=== PATIENT | female | born 1960 | race Caucasian/White ===

== ENCOUNTER → 2018-04-18 11:02 | Outpatient (REF) | payer OTHER, SELFPAY ==
--- NOTE | 2018-04-18 08:50 | SKI_PTH ---
PATIENT: Aylin Martinez LOC: [facility] U#:[id number] AGE/SX: 65/F ROOM: RE04/18/[address]: Ernei Potter MD : 1960 BED: DIS: SPEC #: [id number] RECD: 04/18/18 12:55 STATUS: JUSTIN HUBER #: [id number] YOSEF: 04/18/18 08:[address]: Ernie Potter DEPT: Surgical Specimen RECD BY: Carmina Herrmann ENTERED: 04/18/18 12:56 SP TYPE: CALLI BONNER DR: Marisol Arevalo MD, DC Tissues: 1 - SKIN BIOPSY(SHAVE/PUNCH) Procedures: SKIN LEVEL 4 Comments: [id number] (CREDITED - NO SPECIMEN RECEIVED IN CONTAINER)
== END ==
LOC: LBN 11:02
PROVIDERS: PCP Family Medicine; Visit Provider Family Medicine
DX: L90.8 Other atrophic disorders of skin (principal)
CPT/HCPCS: 88305

== ENCOUNTER 2018-10-13 10:43 | Outpatient (CLI) | payer OTHER, SELFPAY ==
[2018-10-13 12:57] LABS: Vitamin D 25 Total 70.2 ng/ml (30-100)
[2018-10-13 13:02] LABS: Cholesterol 267 mg/dL (50-200); HDL Cholesterol 73 mg/dL (40-60); LDL CHOLESTEROL 164 mg/dL (<100); Triglyceride 102 mg/dL (30-150); Vitamin B12 611 pg/mL (193-986)
== END 2018-10-13 11:03 ==
PROVIDERS: PCP Family Medicine; Visit Provider Family Medicine
DX: Z00.00 Encounter for general adult medical examination without abnormal findings (principal); E03.9 Hypothyroidism, unspecified; E55.9 Vitamin D deficiency, unspecified
CPT/HCPCS: 36415; 80061; 82306; 83721; 82607; 84443

== ENCOUNTER 2018-10-20 00:36 | Outpatient (CLI) | payer OTHER, SELFPAY ==
--- NOTE | 2018-10-20 11:30 | DI.MAMMO_ITS ---
SYMPTOMS/DIAGNOSIS: SCREENING, Z12.31 MAMMOGRAM: Mammograms were interpreted according to the usual protocol including computer analysis with CAD system, tomosynthesis and C view imaging. Comparison is made with exams from 2014 through 2017. The breasts are composed of scattered fibroglandular densities, breast density Category B. No suspicious masses or suspicious microcalcifications are seen. There has been no significant change. IMPRESSION: Category I B, negative mammogram. Yearly screening mammography is recommended. [facility] ASSESSMENT OF FINDINGS: Negative. Category 1. Patient will receive a letter notifying them of these results. BI-RADS category B. There are scattered areas of fibroglandular density.
== END 2018-10-20 00:56 ==
PROVIDERS: PCP Family Medicine; Visit Provider Family Medicine
DX: Z12.31 Encounter for screening mammogram for malignant neoplasm of breast (principal)
CPT/HCPCS: 77063; 77067

== ENCOUNTER 2019-09-05 09:38 | Emergency (ER) | payer BC, SELFPAY ==
[2019-09-05 09:42] VITALS: BP 104/86; PULSE 94; RESP 18; TEMP 36.8; O2SAT 96
--- NOTE | 2019-09-05 09:54 | ED.GENADUL_ITS ---
Discharge Plan Disposition Patient Disposition: HOME Condition: Good Discharge Details Chief Complaint: Sorethroat Clinical Impression: URI (upper respiratory infection), Sinusitis Primary Care Provider: Marisol Arevalo ED Provider: Sondra Vincent Home Meds and New Rx's Prescriptions: New amoxicillin-pot clavulanate [Augmentin] 875-125 mg tablet 1 tab PO BID Qty: 14 RF: 0 Lidocaine Viscous 2 % solution 1 applic MM TID PRN (Reason: pain) Qty: 100 RF: 0 Continued esomeprazole magnesium [Nexium 24HR] 20 mg capsule,delayed release(DR/EC) 20 mg PO DAILY RF: 0 albuterol sulfate 90 mcg/actuation HFA aerosol inhaler 2 puff IH 6XD PRN (Reason: shortness of breath or wheezing) Qty: 18 RF: 0 naproxen sodium [Aleve] 220 MG tablet 220 mg PO Q12H PRN RF: 0 levothyroxine 100 mcg tablet 100 mcg PO DAILY Qty: 90 RF: 3 cholecalciferol (vitamin D3) [Vitamin D3] 50 mcg (2,000 unit) capsule 5,000 unit PO DAILY RF: 0 erythromycin 5 mg/gram (0.5 %) ointment 0.5 inch OP QID 7 Days Qty: 3.5 RF: 0 Discharge Instructions Instructions: Sinusitis (ED), Upper Respiratory Infection (ED) Additional Instructions: Encourage hydration. Tylenol and/or ibuprofen as needed for discomfort. Please take the antibiotics as prescribed. Even if symptoms improve, please take the entire course. Please follow-up with primary care next week if not completely improved. If you develop difficulty breathing, shortness of breath or other new/worsening symptoms please seek care urgently once again. Referrals: Marisol Arevalo MD, DC [Primary Care Provider] - Medical Decision Making Patient is 59-year-old female presented with chief complaint of URI symptoms. She reports that since again proximally 1 week ago. States that she is been having sinus discomfort, sore throat, cough. Reports that she is been having some green nasal discharge and green sputum. Believes a sore throat may be attributed to postnasal discharge. Denies any shortness of breath, no chest pain. Denies any known fevers. Reports that she was seen by her primary care at the beginning of last week at that time, there was concern for conjunctivitis and patient was started on erythromycin ointment. She denies any recent travel. No change in medications. Patient has been taking Tylenol and ibuprofen without any relief in her symptoms. On exam, patient appears nontoxic. Lungs are clear. She has mild erythema in the posterior oropharynx. Endorses discomfort with palpation of the maxillary sinuses. Patient discussed risk and benefits of antibiotics. Patient feels that she needs antibiotic treatment for her sinusitis. Patient be treated with Augmentin. Encourage hydration. Will prescribe viscous lidocaine to help with sore throat. We discussed the concerns regarding these medications. She is given return precautions. I asked that she follow-up with primary care next week if not completely improved. All of her questions and concerns were addressed and she is agreement this plan. [facility] General Mode of arrival: ambulatory . Date/Time Provider Initiated Documentation: 09/05/19 09:54 . Limitations to Documentation: no limitations . Information obtained by: patient and RN notes reviewed . History of Present Illness 59 year old F presents to the emergency department with the chief complaint of URI, described as moderate, with intensity rated at 7 (primary pain is sore throat, also sinus pain). Quality is described as burning, Patient reports no radiation. Patient started experiencing this week(s) (1) and it has been constant. No relieving factors improve symptom(s), No exacerbating factors reported . Patient notes cough; denies chest pain, diaphoresis, fever/chills, headaches, loss of appetite, nausea/vomiting, rash and shortness of breath. Patient did receive the following treatments prior to arrival, none Related Data Home Medications Medication Instructions Recorded Confirmed naproxen sodium [Aleve] 220 mg PO Q12H PRN tab-cap 07/22/17 09/01/19 esomeprazole magnesium 20 mg 20 mg PO DAILY 10/13/18 09/01/19 capsule,delayed release levothyroxine 100 mcg tablet 100 mcg PO DAILY #90 tab-cap 04/03/19 09/01/19 albuterol sulfate 90 mcg/actuation 2 puff IH 6XD PRN #18 gm 09/01/19 09/01/19 aerosol inhaler cholecalciferol (vitamin D3) 50 5,000 unit PO DAILY cap 09/01/19 09/01/19 mcg (2,000 unit) capsule erythromycin 5 mg/gram (0.5 %) eye 0.5 inch OP QID 7 Days #3.5 gm 09/04/19 ointment amoxicillin-pot clavulanate 1 tab PO BID #14 tab 09/05/19 [Augmentin] lidocaine HCl [Lidocaine Viscous] 1 applic MM TID PRN #100 ml 09/05/19 Previous Rx's Medication Instructions Recorded levothyroxine 100 mcg tablet 100 mcg PO DAILY #90 tab-cap 04/03/19 albuterol sulfate 90 mcg/actuation 2 puff IH 6XD PRN #18 gm 09/01/19 aerosol inhaler erythromycin 5 mg/gram (0.5 %) eye 0.5 inch OP QID 7 Days #3.5 gm 09/04/19 ointment amoxicillin-pot clavulanate 1 tab PO BID #14 tab 09/05/19 [Augmentin] lidocaine HCl [Lidocaine Viscous] 1 applic MM TID PRN #100 ml 09/05/19 Allergies Allergy/AdvReac Type Severity Reaction Status Date / Time No Known Allergies Allergy Unverified 09/01/19 17:18 General Stated Complaint: Sorethroat ROSE MARY: 3 Review of Systems Constitutional Constitutional: Reports as per HPI, Denies chills, Reports fatigue, Denies fever(s) and Denies headache(s) Eyes Eyes: Reports as per HPI, Denies eye discharge and Denies irritation ENT Ears, Nose, Mouth, and Throat: Reports as per HPI and Denies headache(s) Cardiovascular Cardiovascular: Reports as per HPI, Denies chest pain and Denies dyspnea Respiratory Respiratory: Reports as per HPI and Denies dyspnea Gastrointestinal Gastrointestinal: Reports as per HPI, Denies abdominal pain, Denies change in bowel habits, Denies nausea and Denies vomiting Integumentary/Breasts Skin/Breast: Reports as per HPI and Denies rash Neurologic Neurologic: Reports as per HPI and Denies headache(s) Endocrine Endocrine: Reports fatigue [facility] Medical History Diverticula, colon (Chronic 07/04/15) DR. Tiago SUTHERLAND Hypothyroidism (Chronic 08/18/12) [id number] Osteopenia (Chronic 02/15/09) Plantar fasciitis (Resolved 09/03/16) Vaginal atrophy (Acute) Vitamin D deficiency (Chronic 07/14/12) Surgical History section 1984,1988 Social History Smoking/Tobacco Use Status: Never Alcohol Intake: current Alcohol Intake frequency: 0-2 drinks per day Alcohol type: wine Drug use: Never Substance use type: does not use Caregiver/Support person: No Household members: spouse Housing: house Pets and animals: Yes Pets and animals: cat(s) Sexually active: Yes Do you think of yourself as: straight/heterosexual Current gender identity: female What is your relationship status?: How often do you talk on the phone with friends or family?: three or more times per week How often do you get together with friends or relatives?: twice per week How often do you attend episcopal or christian services?: 1-3 times per year Do you belong to any clubs or organized social groups?: yes Panel score (0-1 are the most socially isolated patients): 3 Duration: 15-30 minutes/day Frequency: 5-6 times per week Luz/Gnosticist: Anabaptist Do you feel safe at home: Yes Do you feel safe in your relationship?: Yes Exam Const General: cooperative, healthy appearing, comfortable, no acute distress, well developed and well groomed Nutritional Appearance: average body habitus and well nourished Orientation: alert and awake [facility] Head: normal to inspection, normocephalic and atraumatic Ears: hearing grossly normal bilaterally, external ears normal and TM's normal bilaterally General nose exam: external nose normal and nares normal Face and sinus: normal facial exam, face symmetric and sinus tenderness maxillary (bilaterally) Mouth: oral mucosae normal, lip normal, tongue normal, oropharynx normal and moist mucous membranes Teeth and gingiva: dentition normal Throat: posterior oropharynx abnormal (erythematous), tonsils normal and uvula midline Eyes General: appearance normal, both eyes and all related structures Neck Neck: normal visual inspection, full ROM, no lymphadenopathy and no meningeal si gns Resp Effort & Inspection: normal respiratory effort, able to speak in complete sentences and no respiratory distress Auscultation: clear to auscultation bilaterally, no rales, no rhonchi and no wheezes Cardio Rate: regular rate Rhythm: regular rhythm Heart Sounds: S1 normal and S2 normal Skin General skin exam: no rashes or lesions noted Neuro General: alert and awake Cognition: normal cognition Speech: speech normal Gait: normal gait Psych Appearance: grossly normal and well kempt Mental Status: mental status grossly normal Speech and Movement: speech and movement normal Course Vital Signs Vital signs: Vital Signs Temperature 36.8 C 09/05/19 09:42 Pulse 94 H 09/05/19 09:42 Respiratory Rate 18 09/05/19 09:42 Blood Pressure 104/86 09/05/19 09:42 Pulse Oximetry 96 09/05/19 09:42 Temperature 36.8 C 09/05/19 09:42 Temperature Source Temporal Artery Scan 09/05/19 09:42 Pulse 94 H 09/05/19 09:42 Respiratory Rate 18 09/05/19 09:42 Respiratory Effort Non-Labored 09/05/19 09:47 Blood Pressure 104/86 09/05/19 09:42 Blood Pressure Position Sitting 09/05/19 09:42 Pulse Oximetry 96 09/05/19 09:42 Oxygen Delivery Method Room Air 09/05/19 09:42 Oxygen Flow Rate 0 09/05/19 09:42 Pain Level 7 09/05/19 09:42
[2019-09-05 10:22] VITALS: BP 104/86; PULSE 94; RESP 18; TEMP 36.8; O2SAT 96
== END 2019-09-05 10:21 | disposition home or self-care (01) ==
PROVIDERS: Emergency Provider Physician Assistant; PCP Family Medicine
DX: J06.9 Acute upper respiratory infection, unspecified (principal); J01.90 Acute sinusitis, unspecified
CPT/HCPCS: 87880; 99283

== ENCOUNTER 2019-10-19 09:42 | Outpatient (CLI) | payer BC, SELFPAY ==
[2019-10-19 13:06] LABS: Iron 103 ug/dL (50-170)
[2019-10-19 13:22] LABS: Calculated LDL 161 mg/dL (<100); Cholesterol 241 mg/dL (<200); Ferritin 72 ng/mL (8-252); HDL Cholesterol 66 mg/dL (40-60); TSH (W/Ref FT4) 0.26 uIU/mL (0.36-3.74); Triglyceride 71 mg/dL (<150)
[2019-10-19 13:42] LABS: Vitamin D 25 Total 123.1 ng/ml (30-100)
[2019-10-19 13:43] LABS: FREE T4 1.51 ng/dL (0.76-1.46)
[2019-10-19 14:40] LABS: ESR 22 mm/hr (0-30)
[2019-10-20 09:48] LABS: Cyclic Citrullinated Peptide <2.5 U/mL (<5.0)
[2019-10-20 13:59] LABS: ANA Interpretation Positive (Negative)
== END 2019-10-19 10:02 ==
PROVIDERS: PCP Family Medicine; Visit Provider Family Medicine
DX: Z00.00 Encounter for general adult medical examination without abnormal findings (principal); E03.9 Hypothyroidism, unspecified; E55.9 Vitamin D deficiency, unspecified; M25.50 Pain in unspecified joint
CPT/HCPCS: 36415; 80061; 82306; 85652; 86200; 82728; 83540; 84439; 84443; 86038; 86431

== ENCOUNTER 2020-10-26 02:54 | Outpatient (CLI) | payer BC, SELFPAY ==
[2020-10-26 13:11] LABS: ALT 34 U/L (14-59); AST 22 U/L (15-37); Albumin 4.1 g/dL (3.4-5.0); Alkaline Phosphatase 118 U/L (46-116); Anion Gap 6.4 mmol/L (3-11); BUN 20 mg/dL (7-18); Bilirubin, Total 1.1 mg/dL (0.2-1.0); CO2 30.6 mmol/L (21.0-32.0); CREATININE 0.9 mg/dL (0.55-1.02); Calcium 9.6 mg/dL (8.5-10.1); Calculated LDL 204 mg/dL (<100); Chloride 103 mmol/L (98-107); Cholesterol 293 mg/dL (<200); Glucose 92 mg/dL (74-106); HDL Cholesterol 74 mg/dL (40-60); Potassium 4.1 mmol/L (3.5-5.1); Sodium 140 mmol/L (136-145); TSH (W/Ref FT4) 0.92 uIU/mL (0.36-3.74); Total Protein 7.4 g/dL (6.4-8.2); Triglyceride 79 mg/dL (<150); Vitamin B12 852 pg/mL (193-986)
[2020-10-27 04:49] LABS: Vitamin D 25 Total 86.3 ng/ml (30-100)
== END 2020-10-26 02:55 | disposition home or self-care (01) ==
LOC: LOS 02:54
PROVIDERS: PCP Family Medicine; Visit Provider Family Medicine
DX: Z00.00 Encounter for general adult medical examination without abnormal findings (principal); E03.9 Hypothyroidism, unspecified; E55.9 Vitamin D deficiency, unspecified; K29.60 Other gastritis without bleeding
CPT/HCPCS: 36415; 80053; 80061; 82306; 82607; 84443

== ENCOUNTER 2020-11-07 01:45 | Outpatient (CLI) | payer BC, SELFPAY ==
--- NOTE | 2020-11-07 06:15 | DI.MAMMO_ITS ---
EXAM: MG MAMMO SCREENING CLINICAL HISTORY: screening,z12.39. TECHNIQUE: Bilateral full field digital CC and MLO mammographic images were obtained with 3D tomosyn thesis and utilizing computer aided detection (CAD). COMPARISON: Prior mammograms dating back to 2010, the most recent being October 2018. FINDINGS: There are no CAD designations In the left breast there is a noncalcified well-defined slightly lobulated nodule located 5 cm from t he nipple and measuring approximately 5 by 3 millimeters. There are no malignant-appearing microcalc ification groups in this region or elsewhere in either breast. No new focal findings in the right br east. There is no significant architectural distortion nor skin thickening-retraction. IMPRESSION: No radiographic evidence of malignancy in the right breast. Noncalcified 5 x 3 millimeter left breast nodule. Since spot-compression CC and straight lateral ful l breast 3D left breast imaging recommended. Also ultrasound. BI-RADS Category 0 - Assessment Incomplete: Need additional imaging evaluation Breast Density - Category B - Scattered areas of fibroglandular density Breast density Category C or D implies that the patient has dense breast tissue. Dense breast tissue can make it harder to find cancer on a mammogram. Dense breast tissue is also associated with an incr eased risk of breast cancer. This information about the result of the mammogram report was provided to the patient to raise their awareness. Use this report when you speak with the patient about their risks for breast cancer, which includes their family history. At that time, you may recommend additional screening tests (Ultrasoun d or MRI) as these tests may add significant information. A negative radiographic report should not delay biopsy if a dominant or clinically suspicious mass is present. Up to ten percent of cancers are not identified on mammography. A negative report may reinforce clinical impression. Adenosis and dense breasts may obscure an underlying neoplasm. False positive reports average 6 to 10%. Patient will receive a letter notifying them of these results.
== END 2020-11-07 01:46 ==
LOC: DI 01:45
PROVIDERS: PCP Family Medicine; Visit Provider Family Medicine
DX: Z12.31 Encounter for screening mammogram for malignant neoplasm of breast (principal); R92.8 Other abnormal and inconclusive findings on diagnostic imaging of breast
CPT/HCPCS: 77063; 77067

== ENCOUNTER 2020-11-10 01:41 | Outpatient (CLI) | payer BC, SELFPAY ==
--- NOTE | 2020-11-10 | DI.US_ITS ---
EXAM: US BREAST LT LIMITED CLINICAL HISTORY: F/U MAMMO, LT BREAST NODULE. TECHNIQUE: Limited ultrasound of the left breast was performed. COMPARISON: Prior mammograms were reviewed. Today's spot views were also reviewed FINDINGS: At the 12 o'clock position there is a bilobed microcyst measuring 4 x 3 millimeters which corresponds to the nodule on the mammogram. No other ultrasound findings evident IMPRESSION: There is a benign microcysts at 12 o'clock position which corresponds to the nodule on the mammogram. No ominous solid lesions. Appropriate follow-up is to keep this patient on a yearly mammogram schedule, with earlier imaging if a self detected breast changes noted.. BI-RADS Category 2 - Benign Findings Breast Density - Category B - Scattered areas of fibroglandular density Breast density Category C or D implies that the patient has dense breast tissue. Dense breast tissue can make it harder to find cancer on a mammogram. Dense breast tissue is also associated with an incr eased risk of breast cancer. This information about the result of the mammogram report was provided to the patient to raise their awareness. Use this report when you speak with the patient about their risks for breast cancer, which includes their family history. At that time, you may recommend additional screening tests (Ultrasoun d or MRI) as these tests may add significant information. A negative radiographic report should not delay biopsy if a dominant or clinically suspicious mass is present. Up to ten percent of cancers are not identified on mammography. A negative report may reinforce clinical impression. Adenosis and dense breasts may obscure an underlying neoplasm. False positive reports average 6 to 10%. Patient will receive a letter notifying them of these results.
--- NOTE | 2020-11-10 10:41 | DI.MAMMO_ITS ---
EXAM: MG MAMMO SCREEN CALL BACK UNI CLINICAL HISTORY: F/U MAMMO,LT BREAST NODULE. TECHNIQUE: Spot-compression CC and straight lateral 3D mammographic images were obtained with 3D alex osynthesis and utilizing computer aided detection (CAD). COMPARISON: Prior mammograms were reviewed. FINDINGS: The bilobed noncalcified well-defined nodule at 12 o'clock position persists on the additional mammog raphic views performed today.. Ultrasound exam performed immediately following this mammogram today reveals this to be a bilobed nathanael ign microcyst measuring 4 x 3 millimeters.. IMPRESSION: Benign left breast finding. Microcyst. Appropriate follow-up is 2 keep this patient on a yearly [facility] mogram schedule, with earlier imaging if a self detected breast changes noted. BI-RADS Category 2 - Benign Findings Breast Density - Category B - Scattered areas of fibroglandular density Breast density Category C or D implies that the patient has dense breast tissue. Dense breast tissue can make it harder to find cancer on a mammogram. Dense breast tissue is also associated with an incr eased risk of breast cancer. This information about the result of the mammogram report was provided to the patient to raise their awareness. Use this report when you speak with the patient about their risks for breast cancer, which includes their family history. At that time, you may recommend additional screening tests (Ultrasoun d or MRI) as these tests may add significant information. A negative radiographic report should not delay biopsy if a dominant or clinically suspicious mass is present. Up to ten percent of cancers are not identified on mammography. A negative report may reinforce clinical impression. Adenosis and dense breasts may obscure an underlying neoplasm. False positive reports average 6 to 10%. Patient will receive a letter notifying them of these results.
== END 2020-11-10 01:42 ==
LOC: DI 01:41
PROVIDERS: PCP Family Medicine; Visit Provider Family Medicine
DX: Z12.31 Encounter for screening mammogram for malignant neoplasm of breast (principal); R92.8 Other abnormal and inconclusive findings on diagnostic imaging of breast; N60.02 Solitary cyst of left breast
CPT/HCPCS: 76642; 77063; 77067

== ENCOUNTER 2021-01-23 09:38 | Outpatient (REF) | payer BC, SELFPAY ==
--- NOTE | 2021-01-23 09:00 | PAPFT_PTH ---
PATIENT: Aylin Martinez LOC: [facility] U#:[id number] AGE/SX: 60/F ROOM: RE01/23/[address]: LOIDA Gunter : 1960 BED: DIS: 01/23/2021 SPEC #: [id number] RECD: 01/23/21 12:50 STATUS: JUSTIN REQ #: [id number] YOSEF: 01/23/21 09:[address]: Marifer Vargas DEPT: [facility] Cytology RECD BY: Carmina Herrmann ENTERED: 01/23/21 12:50 SP TYPE: PAPFT OTHR DR: Marisol Arevalo MD, DC Tissues: 1 - CX/ENDOCX FOR PAP SMEARS Procedures: PAP THIN PREP/UVM Screening HPV DNA PROBE Comments: [id number]
== END 2021-01-23 09:39 | disposition home or self-care (01) ==
LOC: LBN 09:38
PROVIDERS: PCP Family Medicine; Visit Provider Nurse Practitioner Family
DX: Z12.4 Encounter for screening for malignant neoplasm of cervix (principal); Z11.51 Encounter for screening for human papillomavirus (HPV)
CPT/HCPCS: 88142; 87624

== ENCOUNTER 2021-11-27 11:08 | Outpatient (REF) | payer BC, SELFPAY ==
[2021-11-27 15:03] LABS: Vitamin D 25 Total 81.7 ng/mL (30-100)
[2021-11-27 15:11] LABS: ALT 32 U/L (14-59); AST 22 U/L (15-37); Alkaline Phosphatase 103 U/L (46-116); Anion Gap 9.5 mmol/L (3-11); BUN 20 mg/dL (7-18); Bilirubin, Total 0.8 mg/dL (0.2-1.0); CO2 25.5 mmol/L (21.0-32.0); CREATININE 0.8 mg/dL (0.55-1.02); Calcium 9.4 mg/dL (8.5-10.1); Chloride 105 mmol/L (98-107); Glucose 94 mg/dL (74-106); Potassium 4.3 mmol/L (3.5-5.1); Sodium 140 mmol/L (136-145); TSH (W/Ref FT4) 2.26 uIU/mL (0.36-3.74); Total Protein 7.2 g/dL (6.4-8.2); Vitamin B12 1159 pg/mL (193-986)
== END 2021-11-27 11:09 | disposition home or self-care (01) ==
LOC: LBN 11:08
PROVIDERS: PCP Family Medicine; Visit Provider Family Medicine
DX: E03.9 Hypothyroidism, unspecified (principal); E55.9 Vitamin D deficiency, unspecified; M85.88 Other specified disorders of bone density and structure, other site; Z00.00 Encounter for general adult medical examination without abnormal findings
CPT/HCPCS: 80053; 82306; 82607; 84443

== ENCOUNTER 2023-01-11 01:07 | Outpatient (CLI) | payer BC, SELFPAY ==
[2023-01-11 13:13] LABS: Vitamin D 25 Total 70.8 ng/mL (30-100)
[2023-01-11 13:20] LABS: ALT 34 U/L (14-59); AST 24 U/L (15-37); Albumin 3.8 g/dL (3.4-5.0); Alkaline Phosphatase 109 U/L (46-116); BUN 13 mg/dL (7-18); Bilirubin, Total 1.1 mg/dL (0.2-1.0); CREATININE 0.9 mg/dL (0.55-1.02); Calcium 9.3 mg/dL (8.5-10.1); Calculated LDL 222 mg/dL (<100); Chloride 104 mmol/L (98-107); Cholesterol 310 mg/dL (<200); Estimated GFR 71.39 (mL/min/1.73m2); Glucose 91 mg/dL (74-106); HDL Cholesterol 72 mg/dL (40-60); Potassium 3.8 mmol/L (3.5-5.1); Sodium 141 mmol/L (136-145); TSH (W/Ref FT4) 1.29 uIU/mL (0.36-3.74); Total Protein 7.4 g/dL (6.4-8.2); Triglyceride 80 mg/dL (<150); Vitamin B12 1241 pg/mL (193-986)
== END 2023-01-11 01:08 | disposition home or self-care (01) ==
LOC: LOS 01:08
PROVIDERS: PCP Family Medicine; Visit Provider Family Medicine
DX: Z00.00 Encounter for general adult medical examination without abnormal findings; E55.9 Vitamin D deficiency, unspecified; E03.9 Hypothyroidism, unspecified
CPT/HCPCS: 36415; 80053; 80061; 82306; 82607; 84443

== ENCOUNTER 2023-01-28 01:02 | Outpatient (CLI) | payer BC, SELFPAY ==
--- NOTE | 2023-01-28 07:00 | DI.MAMMO_ITS ---
Exam(s) MAMMO SCREENING EXAM: MAMMO SCREENING CLINICAL HISTORY: screening,z12.39 TECHNIQUE: Mammograms were interpreted according to the usual protocol including computer analysis w [employer] CAD system, tomosynthesis and C-view imaging. COMPARISON: 2013 through 2020 FINDINGS: The breasts are composed of scattered fibroglandular densities, Breast Density category B. No suspicious masses or suspicious microcalcifications are seen. No skin thickening or abnormal axillary lymph nodes are seen. There has been no significant change from prior exams. IMPRESSION: BI-RADS Category 1, Negative mammogram Yearly screening mammography is recommended. Breast Density - Category B, scattered fibroglandular densities. A negative radiographic report should not delay biopsy if a dominant or clinically suspicious mass is present. Up to ten percent of cancers are not identified on mammography. A negative report may reinforce clinical impression. Adenosis and dense breasts may obscure an underlying neoplasm. False positive reports average 6 to 10%. Patient will receive a letter notifying them of these results.
== END 2023-01-28 01:22 ==
LOC: DI 01:02
PROVIDERS: PCP Family Medicine; Visit Provider Family Medicine
DX: Z12.31 Encounter for screening mammogram for malignant neoplasm of breast (principal)
CPT/HCPCS: 77063; 77067

== ENCOUNTER 2024-02-17 04:45 | Outpatient (CLI) | payer MEDICARE, SELFPAY ==
[2024-02-17 13:03] LABS: ALT 27 U/L (14-59); AST 22 U/L (15-37); Albumin 3.7 g/dL (3.4-5.0); Alkaline Phosphatase 89 U/L (46-116); Anion Gap 8.7 mmol/L (3-11); BUN 14 mg/dL (7-18); Bilirubin, Total 0.7 mg/dL (0.2-1.0); CO2 28.3 mmol/L (21.0-32.0); CREATININE 0.8 mg/dL (0.55-1.02); Calcium 9.2 mg/dL (8.5-10.1); Calculated LDL 170 mg/dL (<100); Chloride 108 mmol/L (98-107); Cholesterol 259 mg/dL (<200); Estimated GFR 81.72 (mL/min/1.73m2); Glucose 101 mg/dL (74-106); HDL Cholesterol 70 mg/dL (40-60); Potassium 3.8 mmol/L (3.5-5.1); Sodium 145 mmol/L (136-145); TSH (W/Ref FT4) 1.12 uIU/mL (0.36-3.74); Total Protein 7.2 g/dL (6.4-8.2); Triglyceride 99 mg/dL (<150)
[2024-02-17 18:50] LABS: Hepatitis C Ab w Rflx HCV PCR Negative (Negative)
[2024-02-18 09:32] LABS: Lab Add On Test DONE
[2024-02-21 09:11] LABS: Apolipoprotein A1, S 177 mg/dL (>=140); Apolipoprotein B, S 118 mg/dL (See Comment); Apolipoprotein B/A 1 ratio 0.7 (See Comment)
== END 2024-02-17 04:46 | disposition home or self-care (01) ==
LOC: LOS 04:45
PROVIDERS: PCP Family Medicine; Visit Provider Family Medicine
DX: E03.9 Hypothyroidism, unspecified (principal); I10 Essential (primary) hypertension; Z13.9 Encounter for screening, unspecified; Z00.00 Encounter for general adult medical examination without abnormal findings; E78.00 Pure hypercholesterolemia, unspecified
CPT/HCPCS: 36415; 80053; 80061; 82172; 86803; 84443

== ENCOUNTER → 2024-02-20 02:49 | Outpatient (CLI) | payer MEDICARE, SELFPAY ==
--- NOTE | 2024-02-20 08:00 | DI.MAMMO_ITS ---
Exam(s) MAMMO SCREENING EXAM: MAMMO SCREENING CLINICAL HISTORY: screening,z12.39. TECHNIQUE: Bilateral full field digital CC and MLO mammographic images were obtained with 3D tomosyn thesis and utilizing computer aided detection (CAD). COMPARISON: Prior mammograms were reviewed. FINDINGS: There has been no significant change in the appearance and distribution of the fibroglandular tissue. There are no CAD designations. There are no new spiculated masses nor malignant appearing microcalcification groups. There is no significant architectural distortion nor skin thickening-retraction. IMPRESSION: No radiographic evidence of malignancy. BI-RADS Category 1 - Negative Breast Density - Category B - Scattered areas of fibroglandular density Breast density Category C or D implies that the patient has dense breast tissue. Dense breast tissue can make it harder to find cancer on a mammogram. Dense breast tissue is also associated with an incr eased risk of breast cancer. This information about the result of the mammogram report was provided to the patient to raise their awareness. Use this report when you speak with the patient about their risks for breast cancer, which includes their family history. At that time, you may recommend additional screening tests (Ultrasoun d or MRI) as these tests may add significant information. A negative radiographic report should not delay biopsy if a dominant or clinically suspicious mass is present. Up to ten percent of cancers are not identified on mammography. A negative report may reinforce clinical impression. Adenosis and dense breasts may obscure an underlying neoplasm. False positive reports average 6 to 10%. Patient will receive a letter notifying them of these results.
== END ==
PROVIDERS: PCP Family Medicine; Visit Provider Family Medicine
DX: Z12.31 Encounter for screening mammogram for malignant neoplasm of breast (principal)
CPT/HCPCS: 77063; 77067

== ENCOUNTER 2025-01-11 09:58 | Outpatient (CLI) | payer MEDICARE, SELFPAY ==
[2025-01-11 12:18] LABS: Abs Immature Grans 0.02 10^3/uL (0.0-0.06); Absolute Basophil Count 0.06 10^3/uL (0.0-0.2); Absolute Eosinophil Count 0.12 10^3/uL (0.0-0.7); Absolute Lymphocyte Count 1.73 10^3/uL (1.2-3.4); Absolute Monocyte Count 0.48 10^3/uL (0.1-0.8); Absolute Neutrophil Count 3.26 10^3/uL (1.2-6.7); Basophils % 1.1 %; Eosinophils % 2.1 %; HCT 38.9 % (36.0-46.0); HGB 12.6 g/dL (11.2-15.7); Immature Grans % 0.4 %; Lymphocytes % 30.5 %; MCH 32.1 pg (27.0-33.0); MCHC 32.4 % (32.0-36.0); MCV 99 fL (80-95); Monocytes % 8.5 %; Neutrophils % 57.4 %; Platelet Count 328 10^3/uL (130-400); RBC 3.93 10^6/uL (3.93-5.22); RDW 11.9 % (11.7-14.6); RDW-SD 44.3 fL; WBC 5.67 10^3/uL (4.4-10.8)
[2025-01-11 12:39] LABS: ALT 61 U/L (14-59); AST 35 U/L (15-37); Albumin 3.3 g/dL (3.4-5.0); Alkaline Phosphatase 102 U/L (46-116); Anion Gap 8.2 mmol/L (3-11); BUN 14 mg/dL (7-18); Bilirubin, Total 0.9 mg/dL (0.2-1.0); CO2 28.8 mmol/L (21.0-32.0); CREATININE 0.9 mg/dL (0.55-1.02); Calcium 9.6 mg/dL (8.5-10.1); Chloride 107 mmol/L (98-107); Estimated GFR 70.51 (mL/min/1.73m2); Glucose 95 mg/dL (74-106); Potassium 3.9 mmol/L (3.5-5.1); Sodium 144 mmol/L (136-145); Total Protein 7.1 g/dL (6.4-8.2)
== END 2025-01-11 09:59 | disposition home or self-care (01) ==
PROVIDERS: PCP Family Medicine; Visit Provider Nurse Practitioner Family
DX: R10.9 Unspecified abdominal pain (principal)
CPT/HCPCS: 36415; 80053; 85025

== ENCOUNTER 2025-01-11 10:50 | Outpatient (CLI) | payer MEDICARE, SELFPAY ==
--- NOTE | 2025-01-11 10:00 | DI.RAD_ITS ---
Exam(s) XR ABDOMEN FLAT UPRIGHT EXAM: 2D digital imaging was performed. CLINICAL HISTORY: eval constipation, ABD PAIN, R10.9. COMPARISON: CR CHEST 2 VIEWS PA,LAT from 09/27/2012 TECHNIQUE: Supine and uprightSupine and Lateral views of the abdomen were performed. FINDINGS: BOWEL GAS PATTERN: Nondistended.No free air. Normal quantity of stool. CALCIFICATIONS: No urinary tract calcifications are visible. OSSEOUS STRUCTURES: Normal for age. Visualized portions of chest: Unremarkable. Soft tissues: Unremarkable. IMPRESSION: 1. Nonobstructive bowel gas pattern. 2. Normal quantity of stool. 3. No free air. DATA REPOSITORY: RADIATION DOSE DELIVERED:
== END 2025-01-11 11:10 ==
LOC: DI 10:51
PROVIDERS: PCP Family Medicine; Visit Provider Nurse Practitioner Family
DX: R10.9 Unspecified abdominal pain (principal)
CPT/HCPCS: 74019

== ENCOUNTER 2025-03-12 00:22 | Outpatient (CLI) | payer MEDICARE, SELFPAY ==
--- NOTE | 2025-03-12 06:45 | DI.DEXA_ITS ---
Exam(s) XR DEXA BONE DENSITY W/WO [place] EXAM: XR DEXA BONE DENSITY W/WO [place] CLINICAL HISTORY: post menopausal, asympatomatic menopausal state, Z78.0 TECHNIQUE: COMPARISON: DX CALIXTO from 02/14/2009 FINDINGS: Lateral Spine Image: Unremarkable. No compression deformities identified. Left hip: Total T-Score: -1.6. This compares to -0.4 on the prior examination. Total Z-Score: -0.3 T- and Z-scores: Findings are consistent with osteopenia. Lumbar Spine: Total T-Score: -2.9. This compares to -2.1 on the prior examination. Total Z-Score: -1.0 T- and Z-scores: Findings are consistent with osteoporosis. There is osteoporosis in the left forearm with a total T-score of -3.2 and a Z- score of -1.5. IMPRESSION: Osteoporosis in the lumbar spine and left forearm.
--- NOTE | 2025-03-12 06:46 | DI.MAMMO_ITS ---
Exam(s) MAMMO SCREENING EXAM: MAMMO SCREENING CLINICAL HISTORY: screening, Z12.39 TECHNIQUE: Bilateral full field digital CC and MLO mammographic images were obtained with 3D tomosynthesis and utilizing computer aided detection (CAD). COMPARISON: Comparison is made with prior examinations. FINDINGS: Masses/Architectural Distortion: No suspicious masses or areas of architectural distortion are present. Microcalcifications: No suspicious pleomorphic-type are seen. Skin Thickening/Nipple Retraction: None. IMPRESSION: 1. No significant interval change with no specific features of malignancy noted. 2. Unless there is more urgent need, screening mammography is recommended, as per [place] [employer] guidelines. BI-RADS Category 1 - Negative Breast Density - Category B - There are scattered areas of fibroglandular density. Breast density Category C or D implies that the patient has dense breast tissue. Dense breast tissue can make it harder to find cancer on a mammogram. Dense breast tissue is also associated with an increased risk of breast cancer. This information about the result of the mammogram report was provided to the patient to raise their awareness. Use this report when you speak with the patient about their risks for breast cancer, which includes their family history. At that time, you may recommend additional screening tests (Ultrasound or MRI) as these tests may add significant information. A negative radiographic report should not delay biopsy if a dominant or clinically suspicious mass is present. Up to ten percent of cancers are not identified on mammography. A negative report may reinforce clinical impression. Adenosis and dense breasts may obscure an underlying neoplasm. False positive reports average 6 to 10%. Patient will receive a letter notifying them of these results.
== END 2025-03-12 00:42 ==
LOC: DI 00:23
PROVIDERS: PCP Family Medicine; Visit Provider Family Medicine
DX: Z12.31 Encounter for screening mammogram for malignant neoplasm of breast (principal); Z78.0 Asymptomatic menopausal state; M81.0 Age-related osteoporosis without current pathological fracture
CPT/HCPCS: 77063; 77067; 77080

== ENCOUNTER 2025-04-22 04:44 | Outpatient (CLI) | payer MEDICARE, SELFPAY ==
[2025-04-22 13:02] LABS: ALT 30 U/L (14-59); AST 24 U/L (15-37); Albumin 3.7 g/dL (3.4-5.0); Alkaline Phosphatase 98 U/L (46-116); Anion Gap 9.8 mmol/L (3-11); BUN 17 mg/dL (7-18); Bilirubin, Total 0.5 mg/dL (0.2-1.0); CO2 25.2 mmol/L (21.0-32.0); Calcium 9.3 mg/dL (8.5-10.1); Chloride 105 mmol/L (98-107); Estimated GFR 81.21 (mL/min/1.73m2); Glucose 96 mg/dL (74-106); Potassium 4.1 mmol/L (3.5-5.1); Sodium 140 mmol/L (136-145); TSH (W/Ref FT4) 1.34 uIU/mL (0.36-3.74); Total Protein 7.0 g/dL (6.4-8.2)
== END 2025-04-22 04:45 | disposition home or self-care (01) ==
LOC: LOS 04:44
PROVIDERS: PCP Family Medicine; Visit Provider Family Medicine
DX: E03.9 Hypothyroidism, unspecified (principal); I10 Essential (primary) hypertension
CPT/HCPCS: 36415; 80053; 84443